=== PATIENT | female | born 1945 | race Caucasian/White ===

== ENCOUNTER 2017-12-14 08:27 | Day surgery (SDC) | payer OTHER, SELFPAY ==
--- NOTE | 2017-12-08 17:12 | PM.PROC.1 ---
Procedures Date/Time Date of procedure: 12/14/17 Time of procedure: 09:45 General Procedure description: Date of service: December 15 1007 Preoperative diagnoses: 1. 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 Desires Toric IOL. 2. Diabetes with elevated blood glucose today 218. 3. Hypertension 4. Anxiety. 5. Previous refractive surgery. Postoperative diagnoses: 1. Cataract removed with phacoemulsification toric intraocular lens placed. Procedure: Phacoemulsification with posterior chamber intraocular lens implant Surgeon: Neena Edouard MD Complications: None Specimen: None Implant: [id number] [place] 062. Blood loss: None Anesthesia: Retrobulbar with monitored standby Anesthesiologist: Nereyda Willingham M.D. Description of procedure: Patient is a female year old with decreased vision due to cataract which is affecting activities of daily living. She wants surgery to improve vision. She was taken to the operating room and proparacaine eyedrops were placed. She was then marked with indelible ink at the 90 and 180 degree meridians. She was then given IV sedation. A retrobulbar block insert consisting of 6 cc of 2% xylocaine without epinephrine mixed half and half with 0.5% Marcaine with 1 cc of hyaluronidase added is placed between the medial and lateral 1/3 of the inferior orbital rim. Lid akinesia is obtain with 1% xylocaine with epinephrine infiltrated along the lid margin. The eye is manually massaged for 30 sec, prepped using Betadine solution, and draped in the usual sterile fashion. Temporal approach was made, a 1 mm side-port incision was made at the 7:30 position. Phenylephrine 1.5% mixed with 1% xylocaine 0.2 cc was placed into the anterior chamber. Viscoat followed by Linda was then placed. A 2.6 mm clear incision with a 2.6 mm blade was placed at the 170 degree meridian. A 360 degree capsulorrhexis style capsulotomy was then performed with a cystitome needle on a [place]. Hydrodelineation and hydrodissection were performed. The phacoemulsification unit is introduced, and sculpting notice used to groove the central lens. It is then removed in chopping mode. Epi nucleus is removed with epinuclear mode and irrigation aspiration was used to remove the peripheral cortex. The posterior capsule is polished. The intraocular lens is selected, inspected, power confirmed, and placed in the posterior chamber at the 062 meridian. The pupil was not constricted. The wound was stromally hydrated and tested for leaks, there was none It was left sutureless. Vigamox 0.1 cc was placed into the anterior chamber. Kenalog 0.2 cc was placed in the superior subconjunctival space. A drop of antibiotic and was placed and the eye was patched and shielded. The patient was stable and returned to the recovery room in excellent condition. Dictated by: Neena Edouard MD Copy to: [facility]
--- NOTE | 2017-12-08 17:13 | PM.PREOP ---
Pre-operative Note Interval Note Pre-op Check: History & Physical Reviewed by Physician
[2017-12-14 08:57] VITALS: BP 148/71; PULSE 63; RESP 15; TEMP 36.2; O2SAT 98; BMI 24.0
--- NOTE | 2017-12-14 09:50 | PM.PREOP ---
Pre-operative Note Interval Note Changes: No
--- NOTE | 2017-12-14 09:51 | P.OP.PRE_ITS ---
Pre-operative Note Interval Note Changes: No
[2017-12-14] MEDS: BALANCED SALT IRRIG SOLN NO.2 15 ML IRRIG.SOLN IRR (10:22)
[2017-12-14] MEDS: HYALURONATE SODIUM 10 MG/ML SYRINGE INJ (10:23)
[2017-12-14] MEDS: CHONDROIDTIN/SOD HYALURONATE 1.05 ML SYRINGE INTRAOCULA (10:23)
[2017-12-14] MEDS: MOXIFLOXACIN OPHTH DROPS 3 ML BOTTLE 2 DROPS INJ (10:24)
[2017-12-14] MEDS: LIDOCAINE 1% W/EPI INJ 20 ML INJ (10:24)
[2017-12-14] MEDS: PROPARACAINE 0.5% OPHTH SOL 2 DROPS EYE-OP (10:25)
[2017-12-14] MEDS: PHENYLEPHRINE/LIDOCAINE 3ML VIAL (OR) EYE-OP (10:25)
[2017-12-14] MEDS: TRIAMCINOLONE 50 MG/5 ML VIAL INJ (10:25)
[2017-12-14] MEDS: LIDOCAINE 2% 4 ML, BUPIVACAINE 0.5% (PF) 4 ML, HYALURONIDASE 150 UNIT INJ (10:26)
[2017-12-14 10:49] VITALS: BP 151/58; PULSE 52; RESP 15; TEMP 36.2; O2SAT 98
== END 2017-12-14 11:36 | disposition home or self-care (01) ==
LOC: OR 08:32
PROVIDERS: PCP Internal Medicine; Visit Provider Ophthalmology
DX: H25.11 Age-related nuclear cataract, right eye (principal); E11.9 Type 2 diabetes mellitus without complications; I10 Essential (primary) hypertension; F41.9 Anxiety disorder, unspecified; Z79.84 Long term (current) use of oral hypoglycemic drugs; H52.201 Unspecified astigmatism, right eye
CPT/HCPCS: J2250; J2704; J3010; J3301; J3470; V2787